=== PATIENT | female | born 1975 | race Two or more races ===

== ENCOUNTER → 2024-06-19 | Outpatient (CLI) | payer MEDICAID, SELFPAY ==
--- NOTE | 2024-06-19 08:58 | XR_ITS ---
Examination: Skull series 4 views TECHNIQUE: Lynette right lateral left lateral talus skull series 4 views Exam date and time: 01/18/2024 0905 hours INDICATIONS: Left-sided head pain beginning 4 years ago. FINDINGS: Intact cranial vault Normal sella turcica No abnormal intracranial calcifications Facial bones appear intact IMPRESSION: Intact cranial vault If head pain persists, consider CT scan brain without contrast follow-up
--- NOTE | 2024-06-19 08:58 | XR_ITS ---
EXAMINATION: Cervical spine, 5 views Technique: Cervical spine AP, AP odontoid, lateral, bilateral obliques, 5 views Exam date and time: June 19, 2024 0905 hours INDICATIONS: Posterior neck pain beginning 4 years ago FINDINGS: Reversal normal cervical lordosis Moderate disc narrowing C3-C4 Mild diffuse bilateral neural foraminal stenosis C3-C4, C4-C5, C5-C6 Intact odontoid No cervical fracture IMPRESSION: Moderate degenerative disc disease C3-C4 Mild diffuse bilateral neural foraminal stenosis C3-C4, C4-C5, C5-C6
== END | disposition home or self-care (01) ==
PROVIDERS: PCP Nurse Practitioner Family; Referring Provider Nurse Practitioner Family; Visit Provider Nurse Practitioner Family
DX: M95.2 Other acquired deformity of head (principal); M50.31 Other cervical disc degeneration, high cervical region; M48.02 Spinal stenosis, cervical region
CPT/HCPCS: 70260; 72050

== ENCOUNTER → 2024-07-20 | Outpatient (CLI) | payer MEDICAID, SELFPAY ==
--- NOTE | 2024-07-20 13:00 | XR_ITS ---
Examination: Screening digital mammography, bilateral Computer aided detection 3-D breast Tomosynthesis, bilateral Date and time of exam: July 20, 2024 1307 hrs. Compared to mammograms dating to May 07, 2015 Indication: Screening Technique: Nonmagnified MLO, CC views of the breasts to been obtained, reconstructed from 3-D Tomosynthesis images. R2 computer aided detection program utilized for evaluation of suspicious masses and/or abnormal calcifications. 3-D Tomosynthesis images obtained. Findings: Scattered areas of fibroglandular density Benign calcifications. No interval suspicious masses Impression: BI-RADS category II: Benign Findings. Recommend 1 year follow-up mammogram.
== END | disposition home or self-care (01) ==
LOC: CDIM 12:54
PROVIDERS: Referring Provider Nurse Practitioner Family; Visit Provider Nurse Practitioner Family
DX: Z12.31 Encounter for screening mammogram for malignant neoplasm of breast (principal); R92.323 Mammographic fibroglandular density, bilateral breasts; R92.1 Mammographic calcification found on diagnostic imaging of breast
CPT/HCPCS: 77063; 77067

== ENCOUNTER → 2024-08-24 | Outpatient (CLI) | payer MEDICAID, SELFPAY ==
--- NOTE | 2024-08-24 09:08 | XR_ITS ---
Examination: Knee, right , 3 views Technique: Knee AP, lateral, oblique 3 views Date and time of exam: August 24, 2024 0914 hrs. Indications: Right knee pain beginning 2 days ago. Findings: Mild to moderate narrowing medial joint space No fracture or dislocation Impression: Mild to moderate narrowing medial joint space
== END | disposition home or self-care (01) ==
PROVIDERS: PCP Nurse Practitioner Family; Referring Provider Nurse Practitioner Family; Visit Provider Nurse Practitioner Family
DX: M25.861 Other specified joint disorders, right knee (principal)
CPT/HCPCS: 73562

== ENCOUNTER → 2024-11-21 | Outpatient (CLI) | payer MEDICAID, SELFPAY | END | disposition home or self-care (01) | PROVIDERS: PCP Nurse Practitioner Family; Referring Provider Psychiatry & Neurology Neurology; Visit Provider Psychiatry & Neurology Neurology | DX: R41.3 Other amnesia (principal) | CPT/HCPCS: 95816 ==

== ENCOUNTER → 2024-12-15 | Outpatient (CLI) | payer MEDICAID, SELFPAY ==
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
== END | disposition home or self-care (01) ==
PROVIDERS: PCP Nurse Practitioner Family; Referring Provider Nurse Practitioner Family; Visit Provider Nurse Practitioner Family
DX: S09.90XA Unspecified injury of head, initial encounter (principal); S09.93XA Unspecified injury of face, initial encounter; S19.9XXA Unspecified injury of neck, initial encounter; Y04.2XXA Assault by strike against or bumped into by another person, initial encounter; G60.1 Refsum's disease
CPT/HCPCS: 70150; 70260; 72050

== ENCOUNTER 2025-02-27 10:05 | Day surgery (SDC) | payer MEDICAID, SELFPAY ==
[2025-02-22 15:38] VITALS: BMI 32.8
[2025-02-23 12:39] LABS: HCG Qualitative,Urine Negative
[2025-02-27] VITALS (9 sets, daily range): BP systolic 108–146; BP diastolic 68–98; PULSE 68–90; RESP 9–18; TEMP 36.6–36.7; O2SAT 93–98; BMI 32.2
[2025-02-27] MEDS: RINGERS LACTATED 1000 ML 1,000 ML 125 ML IV (11:01)
[2025-02-27] MEDS: BENZOCAINE 20% (Hurricaine) SPRAY 1 DOSE TOP (11:01)
[2025-02-27] MEDS: fentaNYL CIT INJ 50 mCg/ML AMP 2ML (ASD USE ONLY) IVP (11:05)
[2025-02-27] MEDS: MIDAZOLAM INJ 1 MG/ML VIAL 2 ML (ASD USE ONLY) 2 MG IVP (11:05)
== END 2025-02-27 12:02 | disposition home or self-care (01) ==
PROVIDERS: Anesthesiology; PCP Nurse Practitioner Family; Referring Provider Internal Medicine Gastroenterology; Visit Provider Internal Medicine Gastroenterology
PROC: (CPT 43239; principal; 2025-02-27 10:30)
DX: K29.70 Gastritis, unspecified, without bleeding (principal); I10 Essential (primary) hypertension; K44.9 Diaphragmatic hernia without obstruction or gangrene; K21.9 Gastro-esophageal reflux disease without esophagitis; K76.0 Fatty (change of) liver, not elsewhere classified
CPT/HCPCS: 43239; 81025; A4217; A4649; J1200; J2250; J3010; J7120; A9270

== ENCOUNTER 2025-03-01 08:30 | Day surgery (SDC) | payer MEDICAID, SELFPAY ==
[2025-02-28 12:59] VITALS: BMI 32.2
[2025-03-01] VITALS (11 sets, daily range): BP systolic 101–129; BP diastolic 61–91; PULSE 65–85; RESP 13–19; TEMP 36.3–36.8; O2SAT 94–100; BMI 32.4
[2025-03-01] MEDS: RINGERS LACTATED 1000 ML 1,000 ML 125 ML IV (10:00)
[2025-03-01] MEDS: fentaNYL CIT INJ 50 mCg/ML AMP 2ML (ASD USE ONLY) IVP (10:06)
[2025-03-01] MEDS: MIDAZOLAM INJ 1 MG/ML VIAL 2 ML (ASD USE ONLY) 2 MG IVP (10:06)
== END 2025-03-01 11:20 | disposition home or self-care (01) ==
PROVIDERS: PCP Nurse Practitioner Family; Referring Provider Internal Medicine Gastroenterology; Visit Provider Internal Medicine Gastroenterology
PROC: 0DBE8ZX Excision of Large Intestine, Via Natural or Artificial Opening Endoscopic, Diagnostic (ICD-10-PCS; CPT 45380; principal; 2025-03-01 09:45)
DX: D12.3 Benign neoplasm of transverse colon (principal); K52.9 Noninfective gastroenteritis and colitis, unspecified; K64.8 Other hemorrhoids; I10 Essential (primary) hypertension; K21.9 Gastro-esophageal reflux disease without esophagitis; K76.0 Fatty (change of) liver, not elsewhere classified
CPT/HCPCS: 45385; 45380; A4217; A4649; J1200; J2250; J3010; J7120

== ENCOUNTER → 2025-03-19 | Outpatient (CLI) | payer MEDICAID, SELFPAY ==
--- NOTE | 2025-03-19 | XR_ITS ---
Examination: Lumbar spine, 5 views Technique: Lumbar spine AP, lateral, coned lateral lower lumbar spine, bilateral obliques 5 views Exam date and time: March 19, 2025, 0741 hours INDICATIONS: Lower back pain beginning one month ago. FINDINGS: Lumbar levoscoliosis 12 degrees Mild to moderate diffuse facet arthropathy No lumbar fracture Mild diffuse lumbar disc narrowing most prominent at L5-S1 No spondylolisthesis IMPRESSION: Mild diffuse lumbar degenerative disc disease, most prominent at L5-S1
--- NOTE | 2025-03-19 | XR_ITS ---
EXAMINATION: Cervical spine, 5 views Technique: Cervical spine AP, AP odontoid, lateral, bilateral obliques, 5 views Exam date and time: March 19, 2025 0741 hours, comparison December 15, 2024 INDICATIONS: Neck pain beginning one year ago. FINDINGS: Moderate osteopenia. Satisfactory alignment cervical vertebral bodies Mild diffuse bilateral neural foraminal stenosis Intact odontoid No cervical fracture No significant cervical disc narrowing IMPRESSION: No cervical fracture No significant cervical disc narrowing
== END | disposition home or self-care (01) ==
LOC: CDIM 07:27
PROVIDERS: PCP Nurse Practitioner Family; Referring Provider Nurse Practitioner Family; Visit Provider Nurse Practitioner Family
DX: M54.2 Cervicalgia (principal); M51.360 Other intervertebral disc degeneration, lumbar region with discogenic back pain only; M51.370 Other intervertebral disc degeneration, lumbosacral region with discogenic back pain only
CPT/HCPCS: 72050; 72110

== ENCOUNTER → 2025-05-10 | Outpatient (CLI) | payer MEDICAID, SELFPAY ==
--- NOTE | 2025-05-10 | XR_ITS ---
Examination: Shoulder, right, 3 views Technique: Shoulder AP internal rotation, AP external rotation, Y view shoulder, 3 views Exam date and time : May 10, 2025, 1145 hours INDICATIONS: Right shoulder pain beginning 1 week ago. FINDINGS: No shoulder fracture or dislocation. Moderate osteopenia. Mild narrowing glenohumeral joint Moderate right shoulder calcific tendinitis IMPRESSION: Mild right shoulder calcific tendinitis
--- NOTE | 2025-05-10 11:00 | XR_ITS ---
EXAMINATION: Ultrasound soft tissue neck TECHNIQUE: Grayscale sonographic images soft tissue neck Date and time: May 10, 2025, 1109 hours INDICATIONS: Bilateral neck swelling beginning 3 years ago. FINDINGS: Sonographic images right neck demonstrate multiple lymph nodes, the largest 15 x 12 mm, 14 x 9 mm, 14 x 8 mm Sonographic images left neck demonstrate multiple lymph nodes, largest 20 x 10 mm, 15 x 8 mm, 29 x 8 mm IMPRESSION: Significant cervical lymphadenopathy Recommend CT soft tissue neck post intravenous contrast follow-up
== END | disposition home or self-care (01) ==
PROVIDERS: PCP Nurse Practitioner Family; Referring Provider Nurse Practitioner Family; Visit Provider Nurse Practitioner Family
DX: R59.0 Localized enlarged lymph nodes (principal); M75.31 Calcific tendinitis of right shoulder
CPT/HCPCS: 73030; 76536

== ENCOUNTER 2025-06-13 11:30 | Outpatient (RCR) | payer MEDICAID, SELFPAY ==
--- NOTE | 2025-05-29 12:05 | PT.OIERPT ---
PT OP Initial Eval Patient Information Outpatient Physical Therapy Treatment Date: 05/29/25 Visit Reasons: low back pain/neck pain Medical Diagnosis: M48.02 Treatment Dx #1: Neck Pain Treatment Dx #2: BUE Pain Start of Care: 05/29/25 Date of Onset: 3 years ago Smoking Status Smoking Status: Never smoker Initial Assessment Subjective: Pt is a 49 y/o female reports of chronic neck pain with BUE numbness R>L started ~ 3 years ago. Pt's most current xray showed mild c/s stenosis. No MRI has been done thus far. Pt has limitation with turning head, sleeping, chores, self care, cooking, cleaning, and performing recreational activities. Objective: C/S AROM: all motions are WFL with end range pain in all plane BUE AROM: all motions are WFL BUE MMT: grossly 3+/5 Scapula MMTs: grossly 3+/5 Palpation: TTP upper trape and levator scapulae R>L Assessment: Pt demonstrate neck pain with mobility deficits leading to difficulty with ADLs. Pt will attempt physical therapy if pain persist Pt will be refer back to provider if pain persist. [employer] Goals 1) Increase C/S AROM WNL in 6 wks to be able to perform chores 2) Decrease neck pain to 2/10 in 6 wks to be able to sit and stand more than 30 mins 3) Increase BUE MMTs grossly to 4-/5 in 6 wks to be able to perform lifting activities 4) Increase scapula MMTs grossly to 4-/5 in 6 wks to be able to perform recreational activities 5) Indep with HEP Treatment Plan 1) Manual Therapy 2) Therapeutic Activities 3) Therapeutic Exercises 4) Modalities (ice, heat, traction) Frequency and Duration: 2 x wk for 6 wks Certification Dates: 05/29/25 to 08/27/25 Procedure Charges OP PT Eval Mod Complex 30 minutes: Yes
--- NOTE | 2025-06-06 12:52 | PT.ODAYNRPT ---
PT Outpatient Daily Note OP Daily Note Outpatient Physical Therapy Treatment Date: 06/06/25 Visit Reasons: low back pain/neck pain Subjective: Pt's neck still has pain. No change in overall symptoms since the PT eval. Objective: Please see flow chart for list of ther ex performed Assessment: improved left upper trape and levator scapulae length post stretching. Cues to decrease upper trape recruitment with chin tucks and scapula pinch Plan: Continue with PT Length of Time (minutes) of Treatment: 30 Minutes Procedure Charges Therapeutic Exercise 30 minutes: Yes
--- NOTE | 2025-06-13 12:11 | PT.ODAYNRPT ---
PT Outpatient Daily Note OP Daily Note Outpatient Physical Therapy Treatment Date: 06/13/25 Visit Reasons: low back pain/neck pain Subjective: Pt reports feeling tension on L neck and upper trap region. Objective: Please see flow sheer for ther ex list. Assessment: Performed PROM and pressure point R upper trap region and levator scap resulting in decrease c/o tension. Plan: Continue with POC. Length of Time (minutes) of Treatment: 30 Minutes Procedure Charges Therapeutic Exercise 30 minutes: Yes
== END 2025-06-27 23:59 | disposition home or self-care (01) ==
LOC: CPTX 11:30
PROVIDERS: PCP Nurse Practitioner Family; Referring Provider Nurse Practitioner Family; Visit Provider Nurse Practitioner Family
DX: M48.02 Spinal stenosis, cervical region (principal)
CPT/HCPCS: 97110; 97162

== ENCOUNTER → 2025-06-18 | Outpatient (CLI) | payer MEDICAID, SELFPAY ==
--- NOTE | 2025-06-18 11:30 | XR_ITS ---
Examination: Retroperitoneal ultrasound, complete Technique: Multiple high resolution grayscale images of the retroperitoneum obtained, including kidneys and bladder. Exam date and time: June 18, 2025, 1144 hours INDICATIONS: Recurrent urinary tract infections beginning 5 years ago. FINDINGS: Right kidney 12.1 cm renal cortex 1.4 cm Left kidney 11.5 cm renal cortex 1.6 cm Mild left hydronephrosis Mild renal scarring No bladder mass or bladder calculi, prevoid volume 532 cc IMPRESSION: Bilateral renal cortical thinning Mild renal scar formation Mild left hydronephrosis
== END | disposition home or self-care (01) ==
LOC: CDIM 11:17
PROVIDERS: PCP Surgery; Referring Provider Surgery; Visit Provider Surgery
DX: N28.89 Other specified disorders of kidney and ureter (principal); N13.30 Unspecified hydronephrosis
CPT/HCPCS: 76770